=== PATIENT | male | born 1990 | race Caucasian/White ===

== ENCOUNTER 2021-04-30 17:30 | Outpatient (CLI) | payer OTHER | END 2021-04-30 17:31 | disposition home or self-care (01) | LOC: SLEEPLAB 17:30 | PROVIDERS: ATTEND Family Medicine | DX: G47.33 Obstructive sleep apnea (adult) (pediatric) (principal); R06.83 Snoring; F41.9 Anxiety disorder, unspecified | CPT/HCPCS: 95806 ==